=== PATIENT | male | born 1985 | race Caucasian/White ===

== ENCOUNTER 2023-04-13 18:56 | Emergency (ER) | payer OTHER, SELFPAY ==
[2023-04-13 19:29] VITALS: BP 131/84; PULSE 109; RESP 20; TEMP 36.5; O2SAT 100; BMI 26.6
--- NOTE | 2023-04-13 19:41 | ED_ITS ---
HPI - Abdominal Pain General Chief Complaint: Abdominal Pain Stated Complaint: stomach pain, hernia pain Time Seen by Provider: 04/13/23 19:30 History of Present Illness HPI narrative: This 37-year-old male comes in reporting abdominal pain. He states that he has had some vomiting and diarrhea over the past couple days but had significant increase of pain more recently. He states that he has an inguinal hernia on the right side and this was bulging more than normal the. At the time my assessment however he states that it hit is reduced. He does still report diffuse abdominal pain and a feeling of distention. He does not report any fevers, altered bowel function other than diarrhea, or dysuria. Related Data Home Medications Medication Instructions Recorded Confirmed No Known Home Medications 04/13/23 04/13/23 Allergies Allergy/AdvReac Type Severity Reaction Status Date / Time No Known Drug Allergies Allergy Verified 04/13/23 19:24 Review of Systems Status of ROS Reports: 10 or more systems reviewed and unremarkable except as noted in History and below Narrative Constitutional: No fevers, no weight gain or loss. Eyes: No discharge. No vision changes. HENT: No congestion, no sore throat, no ear pain. Cardiovascular: No chest pain, no palpitations. Respiratory: No shortness of breath, no wheezes, no cough. Gastrointestinal: Abdominal pain with some report of vomiting and diarrhea. He reports a right inguinal hernia that is now bulging less than it was earlier t antonio. Genitourinary: No dysuria, no hematuria. Musculoskeletal: Normal range of motion. Skin: No rashes, no pruritis. Neurological: No dizziness, weakness, sensory change, speech change. Endo/Heme/Allergies: No bruising or bleeding. No polydipsia. Pysch: no suicidality, no anxiety, no insomnia. All other systems reviewed and are negative. PFSH PFS Social History Smoking Status: Never smoker Second hand tobacco smoke exposure: No How often do you have a drink containing alcohol: never AUDIT-C Alcohol total score: 0 Non-prescribed substance use: denies use Exam Narrative: Exam Narrative: Constitutional: Well-developed, well-nourished, no acute distress. HEENT: Normocephalic, atraumatic. Neck: Normal range of motion. Nontender. Supple. Heart: Regular. No murmurs. Normal rate. Intact distal pulses. Lungs: Clear to auscultation. No chest discomfort. No wheezes, rhonchi, or rales. Abdomen: Normal bowel sounds. Diffuse tenderness. No rebound tenderness. Mild prominence in the right inguinal region. No obvious findings of incarcerated hernia. Genitalia: Deferred. Back: No midline tenderness. Normal range of motion. Extremities: Normal range of motion. No injury. Skin: Intact. No rash. Warm. No erythema or pallor. Neurologic: No altered sensation. No weakness. Alert and oriented. Psychiatric: No suicidality. No anxiety or depression. No insomnia. Nursing notes and vitals signs are reviewed. Const: Vital Signs, click to edit/add: Vital Signs - 24 hr 04/13/23 19:29 Temperature 97.7 F Pulse Rate [Pulse Oximeter] 109 H Respiratory Rate 20 Blood Pressure [Le ft Upper Arm] 131/84 Pulse Oximetry 100 Oxygen Delivery Me thod Room Air Course Vital Signs Vital signs: Initial Vital Signs Temperature 97.7 F 04/13/23 19:29 Temperature Source Temporal Artery Scan 04/13/23 19:29 Pulse Rate 109 H 04/13/23 19:29 Pulse Rhythm Regular 04/13/23 19:29 Pulse Strength 3+ Normal 04/13/23 19:29 Respiratory Rate 20 04/13/23 19:29 Blood Pressure 131/84 04/13/23 19:29 Blood Pressure Mean 99 04/13/23 19:29 Blood Pressure Position Sitting 04/13/23 19:29 Pulse Oximetry 100 04/13/23 19:29 Oxygen Delivery Method Room Air 04/13/23 19:29 Vital Signs Temperature 97.7 F 04/13/23 19:29 Pulse Rate 109 H 04/13/23 19:29 Respiratory Rate 20 04/13/23 19:29 Blood Pressure 131/84 04/13/23 19:29 Pulse Oximetry 100 04/13/23 19:29 Oxygen Delivery Method Room Air 04/13/23 19:29 Temperature 97.7 F 04/13/23 19:29 Pulse Rate 109 H 04/13/23 19:29 Respiratory Rate 20 04/13/23 19:29 Blood Pressure 131/84 04/13/23 19:29 Pulse Oximetry 100 04/13/23 19:29 Oxygen Delivery Method Room Air 04/13/23 19:29 MDM - Abdominal Pain MDM Narrative Medical decision making narrative: This 37-year-old male comes in with abdominal pain and reports a history of an inguinal hernia. He states that it was bulging significantly prior to arrival here but now seems to have reduced spontaneously. An IV is established and labs are acquired. These returned with reassuring findings. CT imaging of the abdomen and pelvis does show evidence of a right inguinal hernia but no evidence of bowel protruding through the herniation. There are a few loops of dilated bowel but no obvious sign of obstruction. He states that he is currently not in much discomfort. I advised him to follow up with surgery Clinic for ongoing management of this condition. He did receive a prescription for some tablets of [place] through the [facility] machine. Lab Data Labs: Lab Results 04/13/23 Range/Units 19:45 WBC 10.99 (4.50-11.00) K/uL RBC 5.56 (4.30-5.90) m/uL Hgb 16.8 (13.5-17.5) gm/dL Hct 48.8 (37.0-53.0) % MCV 88 (80-100) fL MCH 30 (26-34) pg MCHC 34 (32-36) gm/dL RDW Coeff of Miguel 12.6 (11.5-15.5) % Plt Count 231 (140-440) K/uL Neut % (Auto) 74.7 H (42.0-72.0) % Lymph % (Auto) 14.3 L (20-44) % Blair % (Auto) 8.1 (0.0-11.0) % Eos % (Auto) 2.3 (0.0-7.0) % Baso % (Auto) 0.2 (0.0-3.0) % Neut # (Auto) 8.20 H (1.7-7.0) K/uL Lymph # (Auto) 1.60 (0.90-2.90) K/uL Blair # (Auto) 0.90 (0.00-0.90) K/UL Eos # (Auto) 0.25 (0.00-0.50) K/uL Baso # (Auto) 0.02 (0.00-0.30) K/uL Abs Immat Gran (auto) 0.04 (0.00-0.30) K/uL Imm/Tot Granulo (auto) 0.4 % Sodium 136 (135-149) mmol/L Potassium 3.5 L (3.6-5.1) mmol/L Chloride 101 (96-114) mmol/L Carbon Dioxide 26 (20-32) mmol/L Anion Gap 9 (7-15) mEq/L BUN 15 (5-24) mg/dL Creatinine 0.9 (0.5-1.5) mg/dL Estimated Creat Clear 101.41 Estimated GFR 113 ml/min Glucose 86 (60-115) mg/dL Calcium 9.6 (8.4-10.6) mg/dL Total Bilirubin 0.6 (0.1-1.5) mg/dL Direct Bilirubin 0.1 (0.0-0.5) mg/dL AST 30 (12-35) U/L ALT 27 (4-50) U/L Alkaline Phosphatase 69 (40-150) U/L Total Protein 6.8 (6.0-8.3) g/dL Albumin 4.1 (3.3-5.0) g/dL Lipase 62 (23-300) U/L Imaging Data CT scan - abdomen: Radiologist's impression: Small fat containing right inguinal hernia with some mesenteric fat stranding which could be a source of pain. No bowel containing hernia. Few mildly dilated loops of small bowel in the right lower quadrant without definite transition point, possibly reactive ileus. Low-grade partial small-bowel obstruction not excluded but thought less likely. Otherwise, no acute intra- abdominal or pelvic abnormality. Discharge Plan Discharge Clinical Impression: Inguinal hernia Patient Disposition: Home, Self-Care Condition: Stable Additional Instructions: Take medication as needed and indicated. Follow up with surgery Clinic for ongoing management. Call [phone] for appointment. Return if worsening. Prescriptions: No Action No Known Home Medications Follow Up/Referrals: Provider,Not a Local [Primary Care Provider] - Stand Alone Forms: [facility] Info Instructions
[2023-04-13 19:53] LABS: Basophils Absolute Auto 0.02 K/uL (0.00-0.30); Basophils Percent Auto 0.2 % (0.0-3.0); Eosinophils Absolute Auto 0.25 K/uL (0.00-0.50); Eosinophils Percent Auto 2.3 % (0.0-7.0); Hematocrit 48.8 % (37.0-53.0); Hemoglobin* 16.8 gm/dL (13.5-17.5); Immature Granulocytes Abs Auto 0.04 K/uL (0.00-0.30); Immature Granulocytes Pct Auto 0.4 %; Lymphocytes Percent Auto 14.3 % (20-44); Mean Corpuscular HGB Conc 34 gm/dL (32-36); Mean Corpuscular Hemoglobin 30 pg (26-34); Mean Corpuscular Volume 88 fL (80-100); Monocytes Percent Auto 8.1 % (0.0-11.0); Neutrophils Percent Auto 74.7 % (42.0-72.0); Platelet Count* 231 K/uL (140-440); RDW Coefficient of Variation % 12.6 % (11.5-15.5); Red Blood Count 5.56 m/uL (4.30-5.90); White Blood Count* 10.99 K/uL (4.50-11.00)
[2023-04-13 19:55] LABS: Slide Review Reflex No
--- NOTE | 2023-04-13 20:04 | CT_ITS ---
Final Report Patient: ILENE DOUGLASS Facility:?[facility] Patient ID:?[id number] Site Patient ID:?[id number]. Site :?[id number] Study:?CT Abdomen/Pelvis W/ISOVUE 370 81CC-04/13/2023 8:30:02 PM Ordering Physician:SINDY Final Report: INDICATION: Diffuse abdominal pain, right inguinal hernia.. TECHNIQUE: CT abdomen and pelvis acquired with 81 cc Isovue 370 IV contrast. COMPARISON: None. FINDINGS: Lower chest: Scattered atelectasis. Liver: Unremarkable. Normal in size and attenuation. No suspicious masses. Gallbladder and bile ducts: Unremarkable. No stones or inflammation. No biliary dilatation. Pancreas: Unremarkable. No mass or inflammation. Spleen: Unremarkable. Normal in size. No masses. Adrenal glands: Unremarkable. No nodules. Kidneys: Unremarkable. No suspicious masses, stones, or hydronephrosis. GI tract: Few mildly dilated loops of small bowel in the right lower quadrant without definite transition point. Normal appendix. Vasculature: Abdominal aorta is normal in caliber. Mesenteric arteries are patent. Lymph nodes: No lymphadenopathy. Peritoneum/Abdominal Wall: Small fat containing right inguinal hernia. Some mesenteric fat stranding. No free air or significant free fluid. Pelvis: Unremarkable. Bones: Unremarkable for age. IMPRESSION: Small fat containing right inguinal hernia with some mesenteric fat stranding which could be a source of pain. No bowel containing hernia. Few mildly dilated loops of small bowel in the right lower quadrant without definite transition point, possibly reactive ileus. Low-grade/partial small bowel obstruction not excluded but thought less likely. Otherwise, no acute intra-abdominal/pelvic abnormality. Please note that all CT scans at this facility use dose modulation, iterative reconstruction, and/or weight-based dosing when appropriate to reduce radiation dose to as low as reasonably achievable. Dictated by Ronald Hussein MD @ 04/13/2023 8:47:55 PM (Electronic Signature)
[2023-04-13 20:11] LABS: Chloride* 101 mmol/L (96-114)
[2023-04-13 20:12] LABS: Albumin* 4.1 g/dL (3.3-5.0); Potassium* 3.5 mmol/L (3.6-5.1); Sodium* 136 mmol/L (135-149)
[2023-04-13 20:14] LABS: Anion Gap 9 mEq/L (7-15); Carbon Dioxide* 26 mmol/L (20-32); Creatinine* 0.9 mg/dL (0.5-1.5); Est. Creatinine Clearance* 101.41; Estimated Glomerular Filt Rate 113 ml/min
[2023-04-13 20:15] LABS: Alanine Aminotransferase* 27 U/L (4-50); Alkaline Phosphatase* 69 U/L (40-150); Aspartate Amino Transferase* 30 U/L (12-35); Bilirubin Direct* 0.1 mg/dL (0.0-0.5); Bilirubin Total* 0.6 mg/dL (0.1-1.5); Blood Urea Nitrogen* 15 mg/dL (5-24); Calcium* 9.6 mg/dL (8.4-10.6); Glucose* 86 mg/dL (60-115); Lipase* 62 U/L (23-300); Total Protein* 6.8 g/dL (6.0-8.3)
[2023-04-13 21:41] VITALS: TEMP 36.5
[2023-04-13] MEDS: KETOROLAC 30 MG/ML inj IVP (21:41)
[2023-04-13 21:45] VITALS: BP 124/78; PULSE 89; RESP 20; TEMP 36.5; O2SAT 100
== END 2023-04-13 21:45 | disposition home or self-care (01) ==
PROVIDERS: Emergency Provider Emergency Medicine Emergency Medical Services
DX: K40.90 Unilateral inguinal hernia, without obstruction or gangrene, not specified as recurrent (principal)
CPT/HCPCS: 36415; 74177; 80048; 80076; 83690; 85025; 96374; 99284; J1885; Q9967